=== PATIENT | female | born 1990 | race Caucasian/White ===

== ENCOUNTER 2017-08-29 00:54 | Emergency (ER) | payer MEDICARE ==
[~2017-08-29] VITALS: Ht 162.6 cm; Wt 131.5 kg
--- OUTSIDE RECORDS SUMMARY | 2017-08-29 00:58 | XMS REPORT | Clinical Summary ---
Author Author DAVID [facility] Address Unknown Phone Unavailable Care Team Providers Care Pilot Control Operator Name Role Phone PCP Unavailable Allergies Active Allergy Reactions Severity Noted Date Comments Ketorolac Itching 04/02/2015 Morphine Rash Low 03/28/2017 Current Medications Prescription Sig. Disp. Refills Start End Date Status Date cefdinir (OMNICEF) 300 MG Take 300 mg by mouth 2 Active capsule (two) times daily. ipratropium (ATROVENT Inhale 2 puffs by mouth 1 Inhaler 0 03/29/20 03/29/20 Active HFA) 17 mcg/actuation via inhaler 3 (three) 17 18 inhaler times daily as needed for Wheezing. levoFLOXacin (LEVAQUIN) Take 1 tablet (750 mg 10 tablet 0 03/29/20 04/08/20 750 MG tablet total) by mouth daily for 17 17 10 days. diazePAM (VALIUM) 5 MG Take 1 tablet (5 mg 10 tablet 0 03/29/2007/28 tablet total) by mouth 2 (two) 17 17 times daily for 10 days. Max Daily Amount: 10 mg Active Problems Not on file Encounters Date Type Specialty Care Team Description 03/29/2017 [facility] tract infection, unspecified type (Primary Dx) after 08/28/2016 Social History Tobacco Use Types Packs/Day Years Used Date Never Smoker Alcohol Use Drinks/Week oz/Week Comments No Sex Assigned at Date Recorded Not on file Last Filed Vital Signs Vital Sign Reading Time Taken Blood Pressure 110/74 03/29/2017 3:10 AM CDT Pulse 91 03/29/2017 3:10 AM CDT Temperature 36.6 C (97.9 F) 03/28/2017 10:01 PM CDT Respiratory Rate 16 03/29/2017 3:10 AM CDT Oxygen Saturation 100% 03/29/2017 3:10 AM CDT Inhaled Oxygen - - Concentration Weight - - Height - - Body Mass Index - - Plan of Treatment Not on file Results * XR chest 2 views (03/28/2017 10:49 PM) Specimen Performing Laboratory [facility] Narrative FINAL REPORT EXAM: 2 VIEW CHEST CLINICAL INDICATION: SHORTNESS OF BREATH, BACK PAIN, NAUSEA IMPRESSION: No comparison studies are available. Streaky opacities are noted in both lungs, most conspicuous at the lung bases. Atelectasis and/or scarring favored. A pneumonia or small underlying mass lesion are difficult to exclude. No evidence of pulmonary edema, pleural effusion or pneumothorax. The cardiac silhouette is borderline enlarged. Mediastinal contours are sharp. No evidence of an acute osseous normality or pneumothorax. Signed: Carlene Garzon MD Report Verified Date/Time:03/28/2017 22:56:17 Reading Location: [address] Reading Room Procedure Note Interface, External Ris In - 03/28/2017 10:58 PM CDT FINAL REPORT EXAM: 2 VIEW CHEST CLINICAL INDICATION: SHORTNESS OF BREATH, BACK PAIN, NAUSEA IMPRESSION: No comparison studies are available. Streaky opacities are noted in both lungs, most conspicuous at the lung bases. Atelectasis and/or scarring favored. A pneumonia or small underlying mass lesion are difficult to exclude. No evidence of pulmonary edema, pleural effusion or pneumothorax. The cardiac silhouette is borderline enlarged. Mediastinal contours are sharp. No evidence of an acute osseous normality or pneumothorax. Signed: Carlene Garzon MD Report Verified Date/Time: 03/28/2017 22:56:17 Reading Location: [address] Reading Room after 08/28/2016
--- OUTSIDE RECORDS SUMMARY | 2017-08-29 00:58 | XMS REPORT | Clinical Summary ---
Author Author [facility] Address Unknown Phone Unavailable Care Team Providers Care Milieu Coordinator Name Role Phone Edgardo Shelley MD PCP Allergies Active Allergy Reactions Severity Noted Date Comments Morphine Itching, Rash Low 04/08/2017 Current Medications Prescription Sig. Disp. Refills Start End Date Status Date esomeprazole (NexIUM) 20 Take 20 mg by mouth daily 01/28/20 Discontin MG capsule before breakfast. 17 ued cephalexin (KEFLEX) 500 Take 1 capsule (500 mg 14 capsule 0 12/16/19 12/23/19 MG capsule total) by mouth 2 (two) 17 17 times a day for 7 days. acetaminophen-codeine Take 1-2 tablets by mouth 15 tablet 0 12/16/19 12/21/19 (TYLENOL WITH CODEINE #3) every 6 (six) hours as 17 17 300-30 mg per tablet needed for moderate pain for up to 5 days. cefuroxime (CEFTIN) 500 Take 1 tablet (500 mg 42 tablet 0 01/28/20 02/11/20 MG tablet total) by mouth 3 (three) 17 17 times a day for 14 days. ondansetron (ZOFRAN) 4 MG Take 1 tablet (4 mg 20 tablet 0 01/28/20 02/02/20 tablet total) by mouth every 6 17 17 (six) hours for 20 doses. acetaminophen-codeine Take 1-2 tablets by mouth 30 tablet 0 01/28/20 02/02/20 (TYLENOL WITH CODEINE #3) every 6 (six) hours as 17 17 300-30 mg per tablet needed for moderate pain for up to 30 doses. sulfamethoxazole-trimetho Take 1 tablet by mouth 2 14 tablet 0 04/15/20 prim (BACTRIM DS) 800-160 (two) times a day for 7 17 17 mg per tablet days. smx-tmp DS (BACTRIM) 800-160 mg tabs (1tab q12 D10) acetaminophen-codeine Take 1-2 tablets by mouth 15 tablet 0 04/08/20 04/15/20 (TYLENOL WITH CODEINE #3) every 6 (six) hours as 17 17 300-30 mg per tablet needed for moderate pain for up to 7 days. Active Problems Not on file Encounters Date Type Specialty Care Team Description 04/08/2017 Emergency Emergency Medicine Johnny Castano DO Urinary tract infection Pavan Reynoso MD in female (Primary Dx); Contusion of left knee, initial encounter 01/27/2017 Emergency Emergency Medicine Mario Rojo MD Pyelonephritis, acute (Primary Dx) 12/15/2016 Emergency Emergency Medicine Cooper Landa MD Bartholin's gland abscess (Primary Dx); Urinary tract infection without hematuria, site unspecified after 08/28/2016 Social History Tobacco Use Types Packs/Day Years Used Date Former Smoker Cigarettes Quit: 2016 Alcohol Use Drinks/Week oz/Week Comments No Sex Assigned at Date Recorded Not on file Last Filed Vital Signs Vital Sign Reading Time Taken Blood Pressure 114/63 04/08/2017 11:42 PM CDT Pulse 96 04/08/2017 11:42 PM CDT Temperature 36.6 C (97.8 F) 04/08/2017 7:52 PM CDT Respiratory Rate 16 04/08/2017 11:42 PM CDT Oxygen Saturation 99% 04/08/2017 11:42 PM CDT Inhaled Oxygen - - Concentration Weight 118 kg (260 lb) 04/08/2017 7:52 PM CDT Height 162.6 cm (5' 4") 04/08/2017 7:52 PM CDT Body Mass Index 44.63 04/08/2017 7:52 PM CDT Plan of Treatment Health Maintenance Due Date Last Done Comments PAP SMEAR 2009 INFLUENZA VACCINE 02/06/2017 Procedures Procedure Name Priority Date/Time Associated Diagnosis Comments [facility] I[facility] BARTHOLIN GLAND Routine 12/16/2016 Results for this ABSCESS 5:29 PM CDT procedure are in the results section. after 08/28/2016 Results * XR Knee 4+ Vw Left (04/08/2017 10:11 PM) Specimen Performing Laboratory [facility] [address] [place] [address] Narrative Examination:XR KNEE 4VW LEFT Clinical History: JOINT PAINKNEE Comparison: None. Findings: 3 views of the right knee are obtained. No acute fracture or dislocation is seen. The joint spaces are within normal limits. Soft tissues are unremarkable. No joint effusion is seen. IMPRESSION: 1. No acute abnormality identified in the right knee. [facility]-[id number] Procedure Note Interface, Radiology Results Incoming - 04/08/2017 10:18 PM CDT Examination: XR KNEE 4 VW LEFT Clinical History: JOINT PAIN KNEE Comparison: None. Findings: 3 views of the right knee are obtained. No acute fracture or dislocation is seen. The joint spaces are within normal limits. Soft tissues are unremarkable. No joint effusion is seen. IMPRESSION: 1. No acute abnormality identified in the right knee. [facility]-[id number] * Urinalysis screen and microscopy, with reflex to culture (04/08/2017 9:45 PM) Only the most recent of 3 results within the time period is included. Component Value Ref Range Specimen site Clean catch Color, UA Yellow Appearance, UA Slightly-Cloudy Specific gravity, UA 1.027 1.001 - 1.035 pH, UA 5.0 5.0 - 8.5 Protein, UA Negative Negative Glucose, UA Negative Negative Ketones, UA Negative Negative Bilirubin, UA Negative Negative Blood, UA Negative Negative Nitrite, UA Negative Negative Urobilinogen, UA 2.0 (A) <2.0 Leukocyte esterase, UA Moderate (A) Negative Epithelial cells, UA Many /HPF WBC, UA 11-20 (H) 0 - 4 /HPF RBC, UA 11-20 (H) 0 - 2 /HPF Bacteria, UA Trace None seen Yeast, UA None seen Yeast with pseudohyphae, None seen UA Specimen Performing Laboratory Urine [facility] DEPARTMENT OF PATHOLOGY AND GENOMIC MEDICINE [address] [place] [address] * Gram stain (04/08/2017 9:45 PM) Only the most recent of 3 results within the time period is included. Component Value Ref Range Gram stain result Rare WBC's Moderate Gram variable rods Comment: Specimen Information Specimen Source: Urine Specimen Site: See UA Specimen Performing Laboratory Urine [facility] DEPARTMENT OF PATHOLOGY AND GENOMIC MEDICINE [address] [place] [address] * Urine culture (04/08/2017 9:45 PM) Only the most recent of 3 results within the time period is included. Component Value Ref Range Urine culture isolate Gram negative rods <10-1 cfu/ml (A) Comment: Specimen Information Specimen Source: Urine Specimen Site: See UA Urine culture isolate Mixed Gram positive carmelo 10-3 cfu/ml (A) Specimen Performing Laboratory Urine [facility] DEPARTMENT OF PATHOLOGY AND GENOMIC MEDICINE [address] [place] [address] * Estimated GFR (04/08/2017 9:25 PM) Only the most recent of 3 results within the time period is included. Component Value Ref Range GFR Non Af Amer >90 mL/min/1.73 m2 GFR Af Amer >90 mL/min/1.73 m2 Comment: Chronic kidney disease: <60 mL/min/1.73m2 Kidney failure: <15 mL/min/1.73m2 The estimated GFR is calculated from the IDMS-traceable Modification of Diet in Renal Disease Equation. The accuracy of the calculation is poor when the creatinine is normal. Calculated values >90 mL/min/1.73m2 are not reported. This equation has not been validated in children (<18 years), women, the elderly (>70 years), or ethnic groups other than Caucasians and Americans. Specimen Performing Laboratory Plasma specimen [facility] DEPARTMENT OF PATHOLOGY AND GENOMIC MEDICINE [address] [place] [address] * CBC with platelet and differential (04/08/2017 9:25 PM) Only the most recent of 3 results within the time period is included. Component Value Ref Range WBC 10.49 4.50 - 11.00 k/uL RBC 4.11 (L) 4.20 - 5.50 m/uL HGB 10.4 (L) 12.0 - 16.0 g/dL HCT 33.0 (L) 37.0 - 47.0 % MCV 80.3 (L) 82.0 - 100.0 fL MCH 25.3 (L) 27.0 - 34.0 pg MCHC 31.5 31.0 - 37.0 g/dL RDW - SD 45.6 37.0 - 55.0 fL MPV 9.7 8.8 - 13.2 fL Platelet count 285 150 - 400 k/uL Nucleated RBC 0.00 /100 WBC Neutrophils 65.8 39.0 - 69.0 % Lymphocytes 20.7 (L) 25.0 - 45.0 % Monocytes 9.1 0.0 - 10.0 % Eosinophils 3.6 0.0 - 5.0 % Basophils 0.5 0.0 - 1.0 % Immature granulocytes 0.3Comment: "Immature granulocytes" 0.0 - 1.0 % (promyelocytes, myelocytes, metamyelocytes) Specimen Performing Laboratory Blood [facility] DEPARTMENT OF PATHOLOGY AND [facility] MEDICINE [id number] [place] [address] [place] [address] * Comprehensive metabolic panel (04/08/2017 9:25 PM) Only the most recent of 3 results within the time period is included. Component Value Ref Range Sodium 137 135 - 148 mEq/L Potassium 3.9 3.5 - 5.0 mEq/L Chloride 97 (L) 98 - 112 mEq/L CO2 26 24 - 31 mEq/L Anion gap 14 7 - 15 mEq/L Comment: Starting from October , anion gap calculation no longer incorporates potassium. Please note the change. BUN 11 6 - 20 mg/dL Creatinine 0.7 0.5 - 0.9 mg/dL Glucose 86 65 - 99 mg/dL Calcium 9.1 8.3 - 10.2 mg/dL Protein 7.0 6.3 - 8.3 g/dL Comment: 4.6-7.0 g/dL 1 week 4.4-7.6 g/dL 7 months-1year 5.1-7.3 g/dL 1-2 years 5.6-7.5 g/dL >3 years 6.0-8.0 g/dL 18-150 6.3-8.3 g/dL Albumin 3.6 3.5 - 5.0 g/dL A/G ratio 1.1 0.7 - 3.8 Alkaline phosphatase 106 (H) 35 - 104 U/L AST 19 10 - 35 U/L ALT 20 5 - 50 U/L Total bilirubin 0.2 0.0 - 1.2 mg/dL Specimen Performing Laboratory Plasma specimen [facility] DEPARTMENT OF PATHOLOGY AND [facility] [id number] [place] [address] [place] [address] * XR Chest 2 Vw (04/08/2017 9:03 PM) Specimen Performing Laboratory [facility] [address] [place] [id number] Narrative Examination:XR CHEST 2 VW Clinical History: Cough Comparison: None. Technique: PA and lateral views of the chest were obtained. Findings: The lungs are free of infiltrate. The heart size is normal. No pleural effusion is seen. Impression: No active cardiopulmonary disease identified. [id number] Procedure Note Interface, Radiology Results Incoming - 04/08/2017 9:09 PM CDT Examination: XR CHEST 2 VW Clinical History: Cough Comparison: None. Technique: PA and lateral views of the chest were obtained. Findings: The lungs are free of infiltrate. The heart size is normal. No pleural effusion is seen. Impression: No active cardiopulmonary disease identified. [id number] * Lipase level (01/27/2017 5:15 PM) Component Value Ref Range Lipase 19 13 - 60 U/L Specimen Performing Laboratory Plasma specimen [facility] DEPARTMENT OF PATHOLOGY AND GENOMIC MEDICINE [address] [place] [id number] * hCG qualitative, serum screen (01/27/2017 4:35 PM) Component Value Ref Range hCG qualitative, serum Negative Specimen Performing Laboratory Blood [facility] DEPARTMENT OF PATHOLOGY AND GENOMIC [address] [address] * INCISION AND DRAINAGE (12/16/2016 5:29 PM) Narrative Cooper Landa MD 12/16/20165:29 PM I&D/Aspiration/Amputation Performed by: COOPER LANDA Authorized by: COOPER LANDA Consent: Consent obtained:Verbal Location: Type:Abscess Location:Anogenital Anogenital location:Bartholin's gland Pre-procedure details: Skin preparation:Betadine Procedure details: Complexity:Simple Needle aspiration: No Incision types:Stab incision Size (cm):1 Scalpel blade:10 Wound management:Irrigated with saline Drainage:Purulent Drainage amount:Moderate Wound treatment:Wound left open Comments: Pt did not tolerate packing of wound * CT Abdomen Pelvis Wo Contrast (12/15/2016 6:23 PM) Specimen Performing Laboratory [facility] [address] [place] [address] Narrative EXAMINATION:CT ABDOMEN PELVIS WO CONTRAST CLINICAL HISTORY:flank pain TECHNIQUE: Multiple axial images of the abdomen and pelvis were obtained without intravenous administration of iodinated contrast. Sagittal and coronal computerized reformatted images were also obtained. The lack of intravenous contrast reduces the sensitivity of detecting solid organ disease. CT imaging was performed with iterative reconstruction technique and/or automated exposure control to reduce radiation dose. COMPARISON:CT abdomen pelvis August 22, 2014 FINDINGS: Localized moderate bronchiectatic changes right lower lobe similar to previous. Lung bases otherwise clear. No free intraperitoneal air or fluid. Abdomen: Fatty infiltration of the liver. No obvious focal abnormality on noncontrast sequences. Borderline enlarged spleen at 12.5 cm. Gallbladder grossly unremarkable. Pancreas normal in size and appearance no obvious mass or peripancreatic inflammation. No abnormal cystic collections. Adrenal glands normal size. Abdominal aorta normal caliber. No periaortic adenopathy. Kidneys grossly normal in size and appearance no hydronephrosis. No tract calculus on either side. Scattered fecal material throughout the colon. There is no obstruction. Pelvis: The appendix is not identified. There is scattered fecal material throughout the colon. There is no bowel obstruction no diverticular change. Uterus grossly unremarkable. Bladder normal size. No adnexal mass. No free fluid in the cul-de-sac. No sidewall adenopathy. Visualized skeleton is intact IMPRESSION: Stable bronchiectasis right lower lobe. No tract calculus or obstruction. Appendix not visualized. No bowel obstruction or diverticular change. Fatty infiltration of liver Otherwise unremarkable noncontrast CT abdomen and pelvis [facility]-[id number] Procedure Note [facility], Radiology Results Incoming - 12/15/2016 6:46 PM CDT EXAMINATION: CT ABDOMEN PELVIS WO CONTRAST CLINICAL HISTORY: flank pain TECHNIQUE: Multiple axial images of the abdomen and pelvis were obtained without intravenous administration of iodinated contrast. Sagittal and coronal computerized reformatted images were also obtained. The lack of intravenous contrast reduces the sensitivity of detecting solid organ disease. CT imaging was performed with iterative reconstruction technique and/or automated exposure control to reduce radiation dose. COMPARISON: CT abdomen pelvis August 22, 2014 FINDINGS: Localized moderate bronchiectatic changes right lower lobe similar to previous. Lung bases otherwise clear. No free intraperitoneal air or fluid. Abdomen: Fatty infiltration of the liver. No obvious focal abnormality on noncontrast sequences. Borderline enlarged spleen at 12.5 cm. Gallbladder grossly unremarkable. Pancreas normal in size and appearance no obvious mass or peripancreatic inflammation. No abnormal cystic collections. Adrenal glands normal size. Abdominal aorta normal caliber. No periaortic adenopathy. Kidneys grossly normal in size and appearance no hydronephrosis. No tract calculus on either side. Scattered fecal material throughout the colon. There is no obstruction. Pelvis: The appendix is not identified. There is scattered fecal material throughout the colon. There is no bowel obstruction no diverticular change. Uterus grossly unremarkable. Bladder normal size. No adnexal mass. No free fluid in the cul-de-sac. No sidewall adenopathy. Visualized skeleton is intact IMPRESSION: Stable bronchiectasis right lower lobe. No tract calculus or obstruction. Appendix not visualized. No bowel obstruction or diverticular change. Fatty infiltration of liver Otherwise unremarkable noncontrast CT abdomen and pelvis [facility]-[id number] * hCG qualitative, urine screen (12/15/2016 4:35 PM) Component Value Ref Range hCG qualitative, urine Negative Negative Comment: The manufacturers stated sensitivity of HcG test for serum is >/=10 mIU/ml and urine is >/=20mIU/ml. Specimen Performing Laboratory Urine [facility] DEPARTMENT OF PATHOLOGY AND GENOMIC MEDICINE [address] [place] [address] after 08/28/2016 Insurance Payer Benefit Subscriber ID Type Phone Address Plan / Group MEDICARE MEDICARE xxxxxxxxxxx Medicare [place] PART [place] B MEDICAID MEDICAID xxxxxxxxx [facility] [place] [address]
--- OUTSIDE RECORDS SUMMARY | 2017-08-29 00:58 | XMS REPORT ---
Author Author [facility] Address Unknown Phone Unavailable Care Team Providers Care Claims Clerk Name Role Phone Unavailable Unavailable Problems This patient has no known problems. Allergies, Adverse Reactions, Alerts This patient has no known allergies or adverse reactions. Medications This patient has no known medications. Results Test Description Test Time Test Comments Text Results Atomic Results Result Comments RAD, CHEST, 2 VIEWS 2017-03-28 22:56:00 Reason for exam:->SHORTNESS OF BREATHReason for exam:->NAUSEAReason for exam:->BACK PAIN FINAL REPORT EXAM: 2 VIEW CHEST CLINICAL [...] osseous normality or pneumothorax. Signed: Carlene Garzon Verified Date/Time: 03/28/2017 22: 56:17 Reading Location: [address] Reading Room
[2017-08-29] MEDS ORDERED: ONDANSETRON HCL 4 MG ORAL DISINTEGRATING TAB ONE (01:30)
[2017-08-29] MEDS ORDERED: ONDANSETRON HCL 4 MG ORAL DISINTEGRATING TAB PO ONE (01:30)
[2017-08-29 01:38] LABS: BILIRUBIN,URINE NEGATIVE (NEGATIVE); CLARITY,URINE SL CLOUDY (CLEAR); COLOR,URINE YELLOW (YELLOW); KETONES,URINE NEGATIVE (NEGATIVE); LEUKOCYTE ESTERASE ,URINE 2+ (NEGATIVE); NITRITE,URINE NEGATIVE (NEGATIVE); PROTEIN,URINE DIPSTICK NEGATIVE (NEGATIVE); URINE UROBILINOGEN 0.2 mg/dL (0.2 - 1)
[2017-08-29 01:49] LABS: BACTERIA,URINE MANY /HPF; EPITHELIAL CELLS,URINE FEW /LPF; MUCUS,URINE MODERATE (RARE); WBC,URINE (MAN) >50 /HPF (0-5)
[2017-08-29] MEDS ORDERED: PANTOPRAZOLE 40 MG 10ML VIAL IV STA (02:41)
[2017-08-29] MEDS ORDERED: SODIUM CHLORIDE 0.9% 1000ML 1,000 ML IV STA (02:41)
[2017-08-29] MEDS ORDERED: CEFTRIAXONE SOD 1 GM VIAL IV STA (02:44)
[2017-08-29] MEDS ORDERED: CEFTRIAXONE SOD 1 GM VIAL ONE (03:21)
[2017-08-29 03:24] LABS: BASOPHILS % 0.4 % (0.0-1.0); EOSINOPHILS # (AUTO) 0.4 (0.0-0.4); EOSINOPHILS % 3.7 % (0.0-6.0); HEMATOCRIT 35.4 % (34.2-44.1); HEMOGLOBIN 11.4 g/dL (12.0-16.0); LYMPHOCYTES # (AUTO) 2.7 (1.0-3.2); LYMPHOCYTES % 25.9 % (18.0-39.1); MEAN CORPUSCULAR HEMOGLOBIN 26.1 pg (28-32); MEAN CORPUSCULAR HGB CONC 32.2 g/dL (31-35); MONOCYTES # (AUTO) 0.9 (0.2-0.8); MONOCYTES % 8.7 % (4.4-11.3); NEUTROPHILS # (AUTO) 6.3 (2.1-6.9); NEUTROPHILS % 60.9 % (38.7-80.0); PLATELET COUNT 300 x10e3/uL (140-360); RED BLOOD COUNT 4.37 x10e6/uL (3.6-5.1); RED CELL DISTRIBUTION WIDTH 15.1 % (11.7-14.4)
[2017-08-29 03:34] LABS: INR 1.15; PROTHROMBIN TIME 13.8 seconds (11.9-14.5)
[2017-08-29 03:35] LABS: PARTIAL THROMBOPLASTIN TIME 36.3 seconds (23.8-35.5)
[2017-08-29 03:43] LABS: ALANINE AMINOTRANSFERASE 26 IU/L (0-55); ALBUMIN 3.7 g/dL (3.5-5.0); ALBUMIN/GLOBULIN RATIO 0.9 (0.8-2.0); ALKALINE PHOSPHATASE 89 IU/L (40-150); BLOOD UREA NITROGEN 16 mg/dL (7-26); BUN/CREATININE RATIO 21 (6-25); CALCIUM 9.3 mg/dL (8.4-10.2); CARBON DIOXIDE 22 mmol/L (22-29); CHLORIDE 103 mmol/L (98-107); CREATININE, SERUM 0.76 mg/dL (0.57-1.11); EST GLOMERULAR FILTRATION RATE > 60 ML/MIN (60-); GLUCOSE 86 mg/dL (74-118); SODIUM 136 mmol/L (136-145)
[2017-08-29 05:09] LABS: AMPHETAMINES SCREEN,URINE NEGATIVE (NEGATIVE); BENZODIAZEPINES SCREEN,URINE NEGATIVE (NEGATIVE); PHENCYCLIDINE SCREEN,URINE NEGATIVE (NEGATIVE)
[2017-08-29 05:33] VITALS: BP 133/69
== END 2017-08-29 05:31 | disposition home or self-care (01) ==
LOC: ER 00:54
DX: R11.2 Nausea with vomiting, unspecified (principal); N30.91 Cystitis, unspecified with hematuria
CPT/HCPCS: 36415; 80053; 80307; 81001; 81025; 85025; 85610; 85730; 87086; 99283; J0696; J7030